=== PATIENT | male | born 1995 | race American Indian/Alaskan Native ===

== ENCOUNTER 2021-04-25 06:22 | Emergency (ER) | payer SELFPAY ==
[2021-04-25 07:30] VITALS: BP 125/91
[2021-04-25] MEDS ORDERED: LIDOCAINE-MPF (1%) 10 MG/1 ML VIAL 5 ML INFILTRATI ONE (07:38)
[2021-04-25] MEDS ORDERED: AZITHROMYCIN 250 MG TAB PO ONE (07:38)
--- NOTE | 2021-04-25 07:41 | Emergency Department Report ---
ED Male HPI - General Chief complaint: Urogenital-Male Stated complaint: PENIAL BLEEDING/STD Time Seen by Provider: 04/25/21 07:30 Source: patient Mode of arrival: Ambulatory Limitations: No Limitations - History of Present Illness Initial comments: 25-year-old -[place] male presents to the ER today with complaints of penile discharge. Patient states that symptoms started a couple days ago. Reports a white penile discharge with associated dysuria, and he states that was concerning was this morning after urinating he noticed small amount of blood around the meatus of his penis. He reports urinary frequency but denies any urinary urgency or hesitancy. He denies any associated testicular pain or swelling. He denies any abdominal pain or back pain. He denies any fever at home. Patient reports history of gonorrhea and chlamydia in the past which have been treated. He states that his last sexual intercourse was 3 weeks ago. It was with the same sexual partner he had been with for the past 5 years but he admits that he did recently suffer a break-up. MD Complaint: penile discharge, dysuria, other (blood after urinating ) -: days(s) - Related Data Previous Rx's Medication Instructions Recorded Last Taken Type DOXYCYCLINE Hyclate [Vibramycin 100 mg PO Q12HR #14 capsule 04/25/21 Unknown Rx CAP] Allergies Allergy/AdvReac Type Severity Reaction Status Date / Time No Known Allergies Allergy Unverified 04/25/21 07:27 ED Review of Systems ROS: Stated complaint: PENIAL BLEEDING/STD Other details as noted in HPI Comment: All other systems reviewed and negative Constitutional: denies: chills, fever ENT: denies: ear pain, throat pain Respiratory: denies: cough, shortness of breath, wheezing Gastrointestinal: denies: abdominal pain, nausea, diarrhea Genitourinary: dysuria, frequency, hematuria, discharge. denies: testicular pain, testicular mass Musculoskeletal: denies: back pain, joint swelling, arthralgia, myalgia Skin: denies: rash, lesions, change in color, change in hair/nails, pruritus Neurological: denies: headache, weakness, numbness, paresthesias, confusion, abnormal gait, vertigo Psychiatric: denies: anxiety, depression, auditory hallucinations, visual hallucinations, homicidal thoughts, suicidal thoughts Hematological/Lymphatic: denies: easy bleeding, easy bruising, swollen glands ED Past Medical Hx - Past Medical History Previous Medical History?: No - Surgical History Past Surgical History?: No - Medications Home Medications: Home Medications Medication Instructions Recorded Confirmed Last Taken Type DOXYCYCLINE Hyclate [Vibramycin 100 mg PO Q12HR #14 capsule 04/25/21 Unknown Rx CAP] ED Physical Exam - General Limitations: No Limitations General appearance: alert, in no apparent distress - Head Head exam: Present: atraumatic, normocephalic, normal inspection - Eye Eye exam: Present: normal appearance, PERRL, EOMI Pupils: Present: normal accommodation - Neck Neck exam: Present: normal inspection, full ROM. Absent: meningismus - Respiratory Respiratory exam: Absent: respiratory distress - Cardiovascular Cardiovascular Exam: Present: regular rate - GI/Abdominal GI/Abdominal exam: Present: soft. Absent: distended, guarding - Neurological Exam Neurological exam: Present: alert, oriented X3, CN II-XII intact, normal gait - Psychiatric Psychiatric exam: Present: normal affect, normal mood - Skin Skin exam: Present: intact ED Course Vital Signs 04/25/21 04/25/21 07:29 07:38 Temperature 100.6 F H 98.9 F Pulse Rate 99 H Respiratory 20 Rate Blood Pressure 125/91 [Right] O2 Sat by Pulse 98 Oximetry Critical care attestation.: If time is entered above; I have spent that time in minutes in the direct care of this critically ill patient, excluding procedure time. ED Disposition Clinical Impression: Urethritis, Concern about STD in male without diagnosis Disposition: 01 HOME / SELF CARE / HOMELESS Is pt being admited?: No Does the pt Need Aspirin: No Condition: Stable Instructions: Urethritis, Adult Additional Instructions: I recommend that you take the doxycycline as prescribed until completion. Recommend no sexual intercourse for about 7 days. Your partner should also be treated. Follow-up with the primary care doctor listed on your discharge instructions. Return to the ER if your symptoms worsens or changes in any way. Prescriptions: DOXYCYCLINE Hyclate [Vibramycin CAP] 100 mg PO Q12HR #14 capsule Referrals: AKIKO TEJEDA MD [Staff Physician] - 3-5 Days OSEI MILLER MD [Staff Physician] - 3-5 Days Forms: STI Treatment and Prevention Time of Disposition: 07:41
[2021-04-25 08:43] LABS: Bilirubin,Urine NEG (Negative); Blood,Urine LG (Negative); Color,Urine Yellow (Yellow); Protein,Urine <15 mg/dL mg/dL (Negative); Urobilinogen,Urine < 2.0 mg/dL (<2.0)
[2021-04-25 08:45] LABS: WBC,Urine > 182.0 /HPF (0.0-6.0)
== END 2021-04-25 08:26 | disposition home or self-care (01) ==
LOC: ED 06:22
DX: N34.2 Other urethritis (principal); Z20.2 Contact with and (suspected) exposure to infections with a predominantly sexual mode of transmission; Z79.899 Other long term (current) drug therapy
CPT/HCPCS: 81001; 87086; 96372; 99283; J0696; J3490